=== PATIENT | male | born 1950 | race Caucasian/White ===

== ENCOUNTER 2018-04-15 16:45 | Inpatient (IN) | payer OTHER ==
[2018-04-15 18:36] VITALS: BMI 23.9
--- NOTE | 2018-04-15 21:14 | HP ---
CIWA Score - CIWA Score Nausea/Vomitin-No Nausea/No Vomiting Muscle Tremors: 2 Anxiety: 3 Agitation: 4-Moderately Restless Paroxysmal Sweats: 3 Orientation: 0-Oriented Tacttile Disturbances: 2-Mild Itch/Numbness/Burn (both hands) Auditory Disturbances: 1-Very Mild Visual Disturbances: 1-Very Mild Sensitivity Headache: 0-None Present CIWA-Ar Total Score: 16 Admission ROS S - HPI Chief Complaint: alcohol withdrawal symptoms Allergies/Adverse Reactions: Allergies Allergy/AdvReac Type Severity Reaction Status Date / Time No Known Allergies Allergy Verified 04/15/18 21:19 History of Present Illness: 67 yo Welsh speaking male with hx of alcohol dependence is here is here seeking detox. Reports three visits to the emergency room in the last three days with the last visit to [facility] for alcohol withdrawal symptoms and multiple falls. PMHX: OA bilateral knee, migraines, GERD, anxiety and depression. Denies suicidal / homicidal ideation. Reports hx of DTS last episode one year ago. Reports no significant period of sobriety. Patient unable to recall last facility attended detox about a year ago. Exam Limitations: No Limitations - Ebola screening Have you traveled outside of the country in the last 21 days: No Have you had contact with anyone from an Ebola affected area: No Have you been sick,other than usual withdrawal symptoms: No Do you have a fever: No - Review of Systems Constitutional: Diaphoresis, Changes in sleep, Unintentional Wgt. Loss (15 lbs in the past six months) EENT: reports: Cataracts (left eye) Respiratory: reports: SOB with Exertion Cardiac: reports: No Symptoms Reported GI: reports: Diarrhea, Poor Fluid Intake, Indigestion : reports: Frequency Musculoskeletal: reports: Joint Pain (right knee, uses caen for ambulation) Integumentary: reports: No Symptoms Reported Neuro: reports: Numbness (both hands), Dizziness Endocrine: reports: Increased Thirst Hematology: reports: No Symptoms Reported Psychiatric: reports: Orientated x3, Anxious Other Systems: Reviewed and Negative Patient History - Patient Medical History Hx Anemia: No Hx Asthma: No Hx Chronic Obstructive Pulmonary Disease (COPD): No Hx Cancer: No Hx Cardiac Disorders: No Hx Congestive Heart Failure: No Hx Hypertension: No Hx Hypercholesterolemia: No Hx Pacemaker: No HX Cerebrovascular Accident: No Hx Seizures: No Hx Dementia: No Hx Diabetes: No Hx Gastrointestinal Disorders: Yes (GERD) Hx Liver Disease: No Hx Genitourinary Disorders: No Hx Sexually Transmitted Disorders: No Hx Renal Disease (ESRD): No Hx Thyroid Disease: No Hx Human Immunodeficiency Virus (HIV): No Hx Hepatitis C: No Hx Depression: Yes Hx Suicide Attempt: No Hx Bipolar Disorder: No Hx Schizophrenia: No - Patient Surgical History Past Surgical History: Yes Hx Neurologic Surgery: No Hx Cataract Extraction: No Hx Cardiac Surgery: No Hx Lung Surgery: No Hx Breast Surgery: No Hx Breast Biopsy: No Hx Abdominal Surgery: No Hx Appendectomy: No Hx Cholecystectomy: No Hx Genitourinary Surgery: No Hx Section: No Hx Orthopedic Surgery: No Other Surgical History: right inguinal hernia 2009 Anesthesia Reaction: No - PPD History Previous Implant?: No Documented Results: Positive w/o proof PPD to be Administered?: No - Reproductive History Patient is a Female of Child Bearing Age (11 -55 yrs old): No - Smoking Cessation Smoking history: Former smoker Have you smoked in the past 12 months: No If you are a former smoker, when did you quit?: 2004 Hx Chewing Tobacco Use: No Initiated information on smoking cessation: No - Substance & Tx. History Hx Alcohol Use: Yes Hx Substance Use: Yes Substance Use Type: Alcohol Hx Substance Use Treatment: No - Substances Abused Alcohol Route: Oral Frequency: Daily Amount used: 15 x 12 oz beer Age of first use: 32 Date of Last Use: 04/14/18 Family Disease History - Family Disease History Family History: Denies Admission Physical Exam BHS - Vital Signs Vital Signs: Vital Signs - 24 hr 04/15/18 18:35 Temperature 97.2 F L Pulse Rate 81 Respiratory 18 Rate Blood Pressure 120/84 - Physical General Appearance: Yes: Disheveled, Thin, Anxious HEENTM: Yes: Within Normal Limits Respiratory: Yes: Within Normal Limits Neck: Yes: Within Normal Limits Breast: Yes: Breast Exam Deferred Cardiology: Yes: Regular Rhythm, Regular Rate Abdominal: Yes: Normal Bowel Sounds, Non Tender, Flat, Soft Genitourinary: Yes: Within Normal Limits Back: Yes: Normal Inspection Musculoskeletal: Yes: full range of Motion, Other (unsteady gait, uses cane for ambulation) Extremities: Yes: Within Normal Limits Neurological: Yes: continuous improvement analyst II-XII NML intact, Fully Oriented, Alert, Motor Strength 5/5, Depressed Affect Integumentary: Yes: Normal Color, Warm, Diaphoresis Lymphatic: Yes: Within Normal Limits - Diagnostic (1) GERD (gastroesophageal reflux disease) Current Visit: Yes Status: Chronic Qualifiers: Esophagitis presence: without esophagitis Qualified Code(s): K21.9 - Gastro -esophageal reflux disease without esophagitis (2) Alcohol dependence with withdrawal Current Visit: Yes Status: Acute Qualifiers: Complication of substance-induced condition: uncomplicated Qualified Code(s ): F10.230 - Alcohol dependence with withdrawal, uncomplicated (3) Use of cane as ambulatory aid Current Visit: Yes Status: Chronic (4) Arthritis Current Visit: Yes Status: Chronic (5) Migraine headache Current Visit: Yes Status: Chronic Qualifiers: Migraine type: unspecified Cleared for Admission [facility] - Detox or Rehab [facility] Level of Care: Medically Managed Detox Regimen/Protocol: Librium [facility] Breath Alcohol Content Breath Alcohol Content: 0.001 Urine Drug Screen - Results Drug Screen Negative: No Urine Drug Screen Results: BZO-Benzodiazepines
[2018-04-15] MEDS ORDERED: P-EPHED 60MG/TRIPROLIDI 2.5MG TABLET PO PRN (21:36)
[2018-04-15] MEDS ORDERED: MENTHOL/PHENOL 1 EACH UD MM PRN (21:36)
[2018-04-15] MEDS ORDERED: chlordiazePOXIDE HCL 25 MG CAPSULE PO PRN (21:36)
[2018-04-15] MEDS ORDERED: hydrOXYzine PAMOATE 25 MG CAPSULE (FP) PO PRN (21:36)
[2018-04-15] MEDS ORDERED: LOPERAMIDE HCL 2 MG CAPSULE PO PRN (21:36)
[2018-04-15] MEDS ORDERED: MAGNESIUM CITRATE 300 ML BOTTLE PO PRN (21:36)
[2018-04-15] MEDS ORDERED: MAGNESIUM HYDROX 2400MG/30ML ORAL SUSPENSION 30 ML CUP PO PRN (21:36)
[2018-04-15] MEDS ORDERED: MAG HYDROX/AL HYDROX/SIMETH 30 ML UNIT-DOSE CUP PO PRN (21:36)
[2018-04-15] MEDS ORDERED: guaiFENesin/D-METHORPHAN HB 10 ML UNIT-DOSE CUPS PO PRN (21:36)
[2018-04-15] MEDS ORDERED: IBUPROFEN 400 MG TABLET (FP) PO PRN (21:36)
[2018-04-15] MEDS ORDERED: MELATONIN 5 MG TABLETS PO PRN (22:00)
[2018-04-16] MEDS: chlordiazePOXIDE HCL 25 MG CAPSULE PO SCH ×5 (01:22→23:26)
[2018-04-16] MEDS: RANITIDINE HCL 150 MG TABLET (FP) PO SCH ×3 (06:25→23:27)
[2018-04-16] MEDS: THIAMINE HCL 100 MG TABLET (FP) PO SCH ×2 (06:25→23:26)
--- NOTE | 2018-04-16 08:57 | CONSULT ---
[facility] Psychiatric Consult - Data Date of interview: 04/16/18 Admission source: [facility] Identifying data: This is a 67 years old greek speaking male, umbulating with cane, with no psychiatric hospitalization history, with long history of Alcohol dependence, reporting Alcohol withdrawal symptoms and seeking detox. Reports three visits to the emergency room in the last three days with the last visit to [facility] for alcohol withdrawal symptoms. Denies psychiatric hospitalization history, denies suicidal, homicidal hisory. Substance Abuse History: - Smoking Cessation. Smoking history: Former smoker. Have you smoked in the past 12 months: No. If you are a former smoker, when did you quit?: 2004. Hx Chewing Tobacco Use: No. Initiated information on smoking cessation: No. - Substance & Tx. History. Hx Alcohol Use: Yes. Hx Substance Use: Yes. Substance Use Type: Alcohol. Hx Substance Use Treatment: No. - Substances Abused. Alcohol. Route: Oral. Frequency: Daily. Amount used: 15 x 12 oz beer. Age of first use: 32. Date of Last Use: 04/14/18 Medical History: GERD, Byleteral Knee Osteoarthritis, umbulatieng with cane, Psychiatric History: Patient reports history of depression and anxiety, reports no medications taking prior to admission, reports memory problems, denies suicidal and homicidal history. Physical/Sexual Abuse/Trauma History: Denies Additional Comment: Observation. Detox Unit Care Protocol Mental Status Exam - Mental Status Exam Alert and Oriented to: Person Cognitive Function: Fair Patient Appearance: Unkempt Mood: Anxious, Irritable Affect: Constricted Patient Behavior: Impulsive, Talkative Speech Pattern: Excessive Voice Loudness: Mildly Loud Thought Process: Circumstantial Thought Disorder: Being Controlled Hallucinations: Denies Suicidal Ideation: Denies Homicidal Ideation: Denies Insight/Judgement: Fair Sleep: Difficulty falling asleep Appetite: Weight loss Muscle strength/Tone: Mild Hypotonicity Gait/Station: Deferred Additional Comments: Observation. Detox Unit Care Protocol Psychiatric Findings - Problem List ([place] 1, 2,3) (1) Alcohol induced insomnia Current Visit: Yes Status: Acute (2) Alcohol-induced mood disorder Current Visit: Yes Status: Acute (3) Alcohol dependence with withdrawal Current Visit: Yes Status: Acute Qualifiers: Complication of substance-induced condition: uncomplicated Qualified Code(s ): F10.230 - Alcohol dependence with withdrawal, uncomplicated (4) Arthritis Current Visit: Yes Status: Chronic (5) GERD (gastroesophageal reflux disease) Current Visit: Yes Status: Chronic Qualifiers: Esophagitis presence: without esophagitis Qualified Code(s): K21.9 - Gastro -esophageal reflux disease without esophagitis (6) Migraine headache Current Visit: Yes Status: Chronic Qualifiers: Migraine type: unspecified (7) Use of cane as ambulatory aid Current Visit: Yes Status: Chronic - Initial Treatment Plan Initial Treatment Plan: Observation. Detox Unit Care Protocol
--- NOTE | 2018-04-16 09:46 | PN ---
S CIWA - CIWA Score Nausea/Vomitin-Mild Nausea/No Vomiting Muscle Tremors: 4-Moderate,w/Arms Extend Anxiety: 4-Mod. Anxious/Guarded Agitation: 4-Moderately Restless Paroxysmal Sweats: 1-Minimal Palms Moist Orientation: 0-Oriented Tacttile Disturbances: 0-None Auditory Disturbances: 0-None Visual Disturbances: 0-None Headache: 0-None Present CIWA-Ar Total Score: 14 BHS Progress Note (SOAP) Subjective: sweat tremor gi distress restlessness Objective: 04/16/18 10:07 Vital Signs Temperature 97.5 F L 04/16/18 06:24 Pulse Rate 71 04/16/18 06:24 Respiratory Rate 18 04/16/18 06:24 Blood Pressure 118/52 04/16/18 06:24 O2 Sat by Pulse Oximetry (%) lab not available at this time Assessment: 04/16/18 10:09 alcohol withdrawal sx Plan: continue alcohol detox
[2018-04-16] MEDS: PRENATAL VITAMINS W/ FOLIC ACID TABLET (FP) PO SCH (10:23)
[2018-04-16] MEDS: ACETAMINOPHEN 325 MG TABLET (FP) PO PRN (10:25)
[2018-04-16 10:46] LABS: CHLORIDE 105 mmol/L (98-107); SODIUM 140 mmol/L (136-145)
[2018-04-16 11:00] LABS: ALBUMIN 4.1 g/dl (3.4-5.0); ALK PHOS 100 U/L (45-117); ANION GAP 10 MMOL/L (8-16); BILIRUBIN,TOTAL 0.4 mg/dL (0.2-1.0); BLOOD UREA NITROGEN 20 mg/dL (7-18); CALCIUM 9.4 mg/dL (8.5-10.1); CO2 25 mmol/L (21-32); CREATININE 0.8 mg/dL (0.7-1.3); GLUCOSE,RANDOM 90 mg/dL (74-106); SGPT/ALT 68 U/L (12-78)
[2018-04-16 11:02] LABS: HEMATOCRIT 46.8 % (35.4-49); HEMOGLOBIN 15.5 GM/dL (11.7-16.9); MCH 28.2 pg (25.7-33.7); MCHC 33.1 g/dl (32.0-35.9); MEAN CELL VOLUME 85.2 fl (80-96); PLATELET COUNT 206 K/MM3 (134-434); RDW 15.3 % (11.9-15.9); WHITE BLOOD COUNT 5.1 K/mm3 (4.0-10.0)
[2018-04-16 11:47] LABS: POTASSIUM 4.4 mmol/L (3.5-5.1); SGOT/AST 45 U/L (15-37)
--- NOTE | 2018-04-16 12:30 | EKG ---
Test Reason : Blood Pressure : / mmHG Vent. Rate : 058 BPM Atrial Rate : 058 BPM P-R Int : 182 ms QRS Dur : 090 ms QT Int : 402 ms P-R-T Axes : 032 046 028 degrees QTc Int : 394 ms SINUS BRADYCARDIA OTHERWISE NORMAL ECG NO PREVIOUS ECGS AVAILABLE Confirmed by KAYLI PICKARD, SUSANNE ([id number]) on 04/16/2018 12:30:14 PM Referred By: Confirmed By:SUSANNE MILAN MD
[2018-04-16] MEDS: METHYL SALICYLATE/MENTHOL OINT 30 GM TUBE TP SCH ×2 (15:08→23:26)
[2018-04-16 16:09] LABS: URINE APPEARANCE CLEAR; URINE BILIRUBIN NEGATIVE (<2.0 mg/dL); URINE COLOR STRAW; URINE GLUCOSE (UA) NEGATIVE (NEGATIVE); URINE KETONE NEGATIVE (NEGATIVE); URINE LEUK ESTERASE NEGATIVE (NEGATIVE); URINE NITRITE NEGATIVE (NEGATIVE); URINE PROTEIN NEGATIVE (NEGATIVE); URINE UROBILINOGEN NEGATIVE mg/dL (0.2-1.0)
[2018-04-17] MEDS: chlordiazePOXIDE HCL 25 MG CAPSULE PO SCH ×3 (07:21→23:22)
[2018-04-17] MEDS: RANITIDINE HCL 150 MG TABLET (FP) PO SCH ×2 (10:27→23:21)
[2018-04-17] MEDS: PRENATAL VITAMINS W/ FOLIC ACID TABLET (FP) PO SCH (10:27)
[2018-04-17] MEDS: METHYL SALICYLATE/MENTHOL OINT 30 GM TUBE TP SCH ×2 (10:28→23:21)
--- NOTE | 2018-04-17 22:22 | PN ---
S CIWA - CIWA Score Nausea/Vomitin-Mild Nausea/No Vomiting Muscle Tremors: 4-Moderate,w/Arms Extend Anxiety: 3 (very anxious) Agitation: 1-Slight > Activity Paroxysmal Sweats: 1-Minimal Palms Moist Orientation: 0-Oriented Tacttile Disturbances: 0-None Auditory Disturbances: 0-None Visual Disturbances: 0-None Headache: 0-None Present CIWA-Ar Total Score: 10 BHS Progress Note (SOAP) Subjective: States feeling very anxious. Having trouble sleeping. Nausea w/o vomiting. Objective: A & O x 3. Mild hand tremors. Vital Signs - 24 hr 04/16/18 04/17/18 04/17/18 23:57 08:35 09:09 Temperature 97 F L 96.4 F L 97.0 F L Pulse Rate 90 67 66 Respiratory 18 18 18 Rate Blood Pressure 115/79 109/78 114/78 04/17/18 04/17/18 13:55 17:35 Temperature 98.2 F 97.3 F L Pulse Rate 75 86 Respiratory 18 19 Rate Blood Pressure 136/96 127/69 Laboratory Last Values WBC 5.1 K/mm3 (4.0-10.0) 04/16/18 07:30 RBC 5.50 M/mm3 (4.00-5.60) 04/16/18 07:30 Hgb 15.5 GM/dL (11.7-16.9) 04/16/18 07:30 Hct 46.8 % (35.4-49) 04/16/18 07:30 MCV 85.2 fl (80-96) 04/16/18 07:30 MCH 28.2 pg (25.7-33.7) 04/16/18 07:30 MCHC 33.1 g/dl (32.0-35.9) 04/16/18 07:30 RDW 15.3 % (11.9-15.9) 04/16/18 07:30 Plt Count 206 K/MM3 (134-434) 04/16/18 07:30 MPV 9.0 fl (7.5-11.1) 04/16/18 07:30 Sodium 140 mmol/L (136-145) 04/16/18 07:30 Potassium 4.4 mmol/L (3.5-5.1) 04/16/18 07:30 Chloride 105 mmol/L (98-107) 04/16/18 07:30 Carbon Dioxide 25 mmol/L (21-32) 04/16/18 07:30 Anion Gap 10 MMOL/L (8-16) 04/16/18 07:30 BUN 20 mg/dL (7-18) H 04/16/18 07:30 Creatinine 0.8 mg/dL (0.7-1.3) 04/16/18 07:30 Creat Clearance w eGFR > 60 (>60) 04/16/18 07:30 Random Glucose 90 mg/dL (74-106) 04/16/18 07:30 Calcium 9.4 mg/dL (8.5-10.1) 04/16/18 07:30 Total Bilirubin 0.4 mg/dL (0.2-1.0) 04/16/18 07:30 AST 45 U/L (15-37) H 04/16/18 07:30 ALT 68 U/L (12-78) 04/16/18 07:30 Alkaline Phosphatase 100 U/L (45-117) 04/16/18 07:30 Total Protein 8.0 g/dl (6.4-8.2) 04/16/18 07:30 Albumin 4.1 g/dl (3.4-5.0) 04/16/18 07:30 Urine Color Straw 04/16/18 10:30 Urine Appearance Clear 04/16/18 10:30 Urine pH 5.0 (5.0-8.0) 04/16/18 10:30 Ur Specific [place] 1.006 (1.001-1.035) 04/16/18 10:30 Urine Protein Negative (NEGATIVE) 04/16/18 10:30 Urine Glucose (UA) Negative (NEGATIVE) 04/16/18 10:30 Urine Ketones Negative (NEGATIVE) 04/16/18 10:30 Urine Blood Negative (NEGATIVE) 04/16/18 10:30 Urine Nitrite Negative (NEGATIVE) 04/16/18 10:30 Urine Bilirubin Negative (<2.0 mg/dL) 04/16/18 10:30 Urine Urobilinogen Negative mg/dL (0.2-1.0) 04/16/18 10:30 Ur Leukocyte Esterase Negative (NEGATIVE) 04/16/18 10:30 RPR Titer Nonreactive (NONREACTIVE) 04/16/18 07:30 Labs reviewed. 04/17/18 22:19 Assessment: Withdrawal symptoms. Plan: Continue detox.
[2018-04-17] MEDS: THIAMINE HCL 100 MG TABLET (FP) PO SCH (23:21)
[2018-04-17] MEDS: chlordiazePOXIDE 5 MG CAPSULE PO SCH (23:21)
[2018-04-18] MEDS: chlordiazePOXIDE 5 MG CAPSULE PO SCH ×3 (05:15→17:50)
[2018-04-18] MEDS: PRENATAL VITAMINS W/ FOLIC ACID TABLET (FP) PO SCH (11:09)
[2018-04-18] MEDS: RANITIDINE HCL 150 MG TABLET (FP) PO SCH ×2 (11:09→22:19)
[2018-04-18] MEDS: METHYL SALICYLATE/MENTHOL OINT 30 GM TUBE TP SCH ×2 (11:11→22:19)
--- NOTE | 2018-04-18 17:56 | PN ---
S Progress Note (SOAP) Subjective: Mild tremors, nausea w/o vomiting. Objective: Alert and oriented x 3 Gait steady. Mild tremors felt in hands. Vital Signs 04/18/18 04/18/18 13:35 17:27 Temperature 97.6 F 97.7 F Pulse Rate 74 67 Respiratory 18 18 Rate Blood Pressure 117/74 117/63 Laboratory Last Values WBC 5.1 K/mm3 (4.0-10.0) 04/16/18 07:30 RBC 5.50 M/mm3 (4.00-5.60) 04/16/18 07:30 Hgb 15.5 GM/dL (11.7-16.9) 04/16/18 07:30 Hct 46.8 % (35.4-49) 04/16/18 07:30 MCV 85.2 fl (80-96) 04/16/18 07:30 MCH 28.2 pg (25.7-33.7) 04/16/18 07:30 MCHC 33.1 g/dl (32.0-35.9) 04/16/18 07:30 RDW 15.3 % (11.9-15.9) 04/16/18 07:30 Plt Count 206 K/MM3 (134-434) 04/16/18 07:30 MPV 9.0 fl (7.5-11.1) 04/16/18 07:30 Sodium 140 mmol/L (136-145) 04/16/18 07:30 Potassium 4.4 mmol/L (3.5-5.1) 04/16/18 07:30 Chloride 105 mmol/L (98-107) 04/16/18 07:30 Carbon Dioxide 25 mmol/L (21-32) 04/16/18 07:30 Anion Gap 10 MMOL/L (8-16) 04/16/18 07:30 BUN 20 mg/dL (7-18) H 04/16/18 07:30 Creatinine 0.8 mg/dL (0.7-1.3) 04/16/18 07:30 Creat Clearance w eGFR > 60 (>60) 04/16/18 07:30 Random Glucose 90 mg/dL (74-106) 04/16/18 07:30 Calcium 9.4 mg/dL (8.5-10.1) 04/16/18 07:30 Total Bilirubin 0.4 mg/dL (0.2-1.0) 04/16/18 07:30 AST 45 U/L (15-37) H 04/16/18 07:30 ALT 68 U/L (12-78) 04/16/18 07:30 Alkaline Phosphatase 100 U/L (45-117) 04/16/18 07:30 Total Protein 8.0 g/dl (6.4-8.2) 04/16/18 07:30 Albumin 4.1 g/dl (3.4-5.0) 04/16/18 07:30 Urine Color Straw 04/16/18 10:30 Urine Appearance Clear 04/16/18 10:30 Urine pH 5.0 (5.0-8.0) 04/16/18 10:30 Ur Specific [place] 1.006 (1.001-1.035) 04/16/18 10:30 Urine Protein Negative (NEGATIVE) 04/16/18 10:30 Urine Glucose (UA) Negative (NEGATIVE) 04/16/18 10:30 Urine Ketones Negative (NEGATIVE) 04/16/18 10:30 Urine Blood Negative (NEGATIVE) 04/16/18 10:30 Urine Nitrite Negative (NEGATIVE) 04/16/18 10:30 Urine Bilirubin Negative (<2.0 mg/dL) 04/16/18 10:30 Urine Urobilinogen Negative mg/dL (0.2-1.0) 04/16/18 10:30 Ur Leukocyte Esterase Negative (NEGATIVE) 04/16/18 10:30 RPR Titer Nonreactive (NONREACTIVE) 04/16/18 07:30 Labs reviewed. Assessment: Withdrawal symptoms Plan: Continue detox.
[2018-04-18] MEDS: chlordiazePOXIDE HCL 10 MG CAPSULE PO SCH (22:19)
[2018-04-18] MEDS: THIAMINE HCL 100 MG TABLET (FP) PO SCH (22:19)
[2018-04-19] MEDS: ACETAMINOPHEN 325 MG TABLET (FP) PO PRN (01:15)
[2018-04-19] MEDS: chlordiazePOXIDE HCL 10 MG CAPSULE PO SCH (05:43)
--- NOTE | 2018-04-19 09:09 | DS ---
[facility] Detox Discharge Summary Admission Date: 04/15/18 Discharge Date: 04/19/18 - History Present History: Alcohol Dependence Additional Comments: Patient stable. Patient to follow up with primary care provider 1 - 2 weeks post discharge. Pertinent Past History: Arthritis GERD Migraine Headache - Physical Exam Results Vital Signs: Vital Signs Temperature 96.6 F L 04/19/18 06:00 Pulse Rate 69 04/19/18 06:00 Respiratory Rate 18 04/19/18 06:00 Blood Pressure 112/68 04/19/18 06:00 O2 Sat by Pulse Oximetry (%) Pertinent Admission Physical Exam Findings: Vital Signs Temperature 97.8 F 04/19/18 09:48 Pulse Rate 79 04/19/18 09:48 Respiratory Rate 18 04/19/18 09:48 Blood Pressure 116/79 04/19/18 09:48 O2 Sat by Pulse Oximetry (%) Laboratory Last Values WBC 5.1 K/mm3 (4.0-10.0) 04/16/18 07:30 RBC 5.50 M/mm3 (4.00-5.60) 04/16/18 07:30 Hgb 15.5 GM/dL (11.7-16.9) 04/16/18 07:30 Hct 46.8 % (35.4-49) 04/16/18 07:30 MCV 85.2 fl (80-96) 04/16/18 07:30 MCH 28.2 pg (25.7-33.7) 04/16/18 07:30 MCHC 33.1 g/dl (32.0-35.9) 04/16/18 07:30 RDW 15.3 % (11.9-15.9) 04/16/18 07:30 Plt Count 206 K/MM3 (134-434) 04/16/18 07:30 MPV 9.0 fl (7.5-11.1) 04/16/18 07:30 Sodium 140 mmol/L (136-145) 04/16/18 07:30 Potassium 4.4 mmol/L (3.5-5.1) 04/16/18 07:30 Chloride 105 mmol/L (98-107) 04/16/18 07:30 Carbon Dioxide 25 mmol/L (21-32) 04/16/18 07:30 Anion Gap 10 MMOL/L (8-16) 04/16/18 07:30 BUN 20 mg/dL (7-18) H 04/16/18 07:30 Creatinine 0.8 mg/dL (0.7-1.3) 04/16/18 07:30 Creat Clearance w eGFR > 60 (>60) 04/16/18 07:30 Random Glucose 90 mg/dL (74-106) 04/16/18 07:30 Calcium 9.4 mg/dL (8.5-10.1) 04/16/18 07:30 Total Bilirubin 0.4 mg/dL (0.2-1.0) 04/16/18 07:30 AST 45 U/L (15-37) H 04/16/18 07:30 ALT 68 U/L (12-78) 04/16/18 07:30 Alkaline Phosphatase 100 U/L (45-117) 04/16/18 07:30 Total Protein 8.0 g/dl (6.4-8.2) 04/16/18 07:30 Albumin 4.1 g/dl (3.4-5.0) 04/16/18 07:30 Urine Color Straw 04/16/18 10:30 Urine Appearance Clear 04/16/18 10:30 Urine pH 5.0 (5.0-8.0) 04/16/18 10:30 Ur Specific [place] 1.006 (1.001-1.035) 04/16/18 10:30 Urine Protein Negative (NEGATIVE) 04/16/18 10:30 Urine Glucose (UA) Negative (NEGATIVE) 04/16/18 10:30 Urine Ketones Negative (NEGATIVE) 04/16/18 10:30 Urine Blood Negative (NEGATIVE) 04/16/18 10:30 Urine Nitrite Negative (NEGATIVE) 04/16/18 10:30 Urine Bilirubin Negative (<2.0 mg/dL) 04/16/18 10:30 Urine Urobilinogen Negative mg/dL (0.2-1.0) 04/16/18 10:30 Ur Leukocyte Esterase Negative (NEGATIVE) 04/16/18 10:30 RPR Titer Nonreactive (NONREACTIVE) 04/16/18 07:30 - Treatment Hospital Course: Detox Protocol Followed, Discharged Condition Good - Medication Discharge Medications: Ambulatory Orders Acetaminophen [Mapap] 500 mg PO Q8H 04/15/18 Ibuprofen 600 mg PO Q8H 04/15/18 Ranitidine [Zantac -] 150 mg PO BID 04/15/18 Sumatriptan Succinate [Imitrex] 25 mg PO PRN 04/15/18 - Diagnosis (1) GERD (gastroesophageal reflux disease) Status: Chronic Qualifiers: Esophagitis presence: without esophagitis Qualified Code(s): K21.9 - Gastro -esophageal reflux disease without esophagitis (2) Alcohol dependence with withdrawal Status: Acute Qualifiers: Complication of substance-induced condition: uncomplicated Qualified Code(s ): F10.230 - Alcohol dependence with withdrawal, uncomplicated (3) Use of cane as ambulatory aid Status: Chronic (4) Arthritis Status: Chronic (5) Migraine headache Status: Chronic Qualifiers: Migraine type: unspecified - AMA Did Patient Leave Against Medical Advice: No
[2018-04-19 09:49] VITALS: BP 116/79; PULSE 79; TEMP 97.8
== END 2018-04-19 10:08 | disposition home or self-care (01) | DRG 775 ==
LOC: YASAS 16:45 → Y6N 23:50
PROC: HZ2ZZZZ Detoxification Services for Substance Abuse Treatment (ICD-10-PCS; principal; 2018-04-15)
DX: F10.230 Alcohol dependence with withdrawal, uncomplicated (principal); F10.24 Alcohol dependence with alcohol-induced mood disorder; F10.282 Alcohol dependence with alcohol-induced sleep disorder; F41.8 Other specified anxiety disorders; G43.909 Migraine, unspecified, not intractable, without status migrainosus; K21.9 Gastro-esophageal reflux disease without esophagitis; M17.0 Bilateral primary osteoarthritis of knee; R26.89 Other abnormalities of gait and mobility; Z99.89 Dependence on other enabling machines and devices
CPT/HCPCS: 36415; 71046-TC-FY; 80053; 81003; 85027; 86593; 93005; 93010